=== PATIENT | female | born 1955 | race Caucasian/White ===

== ENCOUNTER 2019-08-13 11:31 | Outpatient (CLI) | payer MEDICARE, SELFPAY ==
--- NOTE | 2019-08-13 | XR_ITS ---
WS: [id number] RIGHT HAND: 3 VIEW(S) TECHNIQUE: PA, oblique and lateral. HISTORY: CONTUSION COMPARISON: None available. Nondisplaced transverse fracture proximal fifth metacarpal. No additional fractures are identified. Mild interphalangeal joint space narrowing throughout the hand. Mild degenerative changes at the firs t carpometacarpal joint. Soft tissue edema over the medial hand. XR/XR hand RT min 3V* [id number] IMPRESSION: Nondisplaced transverse fracture proximal fifth metacarpal.
== END 2019-08-13 11:32 | disposition home or self-care (01) ==
PROVIDERS: Family Provider Family Medicine; PCP Family Medicine; Visit Provider Nurse Practitioner Family
DX: S60.221A Contusion of right hand, initial encounter (principal); S62.306A Unspecified fracture of fifth metacarpal bone, right hand, initial encounter for closed fracture; X58.XXXA Exposure to other specified factors, initial encounter
CPT/HCPCS: 73130

== ENCOUNTER 2019-08-30 09:15 | Outpatient (CLI) | payer MEDICARE, SELFPAY ==
--- NOTE | 2019-08-30 09:22 | MM_ITS ---
WS: [id number] Bilateral diagnostic digital mammogram, 08/30/2019 Clinical Data: HX OF BREAST CANCER RT. Comparison: 06/10/2011, 04/28/2007, 04/11/2006, 02/19/2005. Findings: The breasts show heterogeneous density. No spiculated masses or clustered calcifications are seen. Th ere are no secondary signs of carcinoma. MM/[place] [id number] Impression: 1. Negative bilateral mammograms unchanged. 2. Recommend yearly mammograms. BIRADS: 1-Negative FOLLOW UP: 1 Year Follow-up The CAD motor checker was used.
== END 2019-08-30 09:16 | disposition home or self-care (01) ==
LOC: RADSHAW 09:18
PROVIDERS: PCP Family Medicine; Visit Provider Family Medicine
DX: Z85.3 Personal history of malignant neoplasm of breast (principal)
CPT/HCPCS: 77066

== ENCOUNTER → 2019-09-10 15:53 | Outpatient (BNVA) | payer MEDICARE, SELFPAY | PROVIDERS: PCP Family Medicine; Visit Provider Orthopaedic Surgery | DX: S62.306A Unspecified fracture of fifth metacarpal bone, right hand, initial encounter for closed fracture (principal); X58.XXXA Exposure to other specified factors, initial encounter | CPT/HCPCS: 73130 ==

== ENCOUNTER 2020-06-20 14:10 | Outpatient (CLI) | payer MEDICARE, SELFPAY ==
--- NOTE | 2020-06-20 14:19 | MM_ITS ---
WS: [id number] DIAGNOSTIC RIGHT DIGITAL MAMMOGRAM WITH CAD RIGHT breast ultrasound, limited HISTORY: RIGHT BREAST PAIN COMPARISON: 08/30/2019, 06/09/2020 Technique: CC, MLO and ML views. Spot compression RIGHT CC. Breast composition: The breasts are heterogeneously dense, which may obscure small masses. Triangula r marker is placed over the anterior breast in the area of her previously described palpable abnormal ity. Palpable abnormality has resolved since initially identified. There is no underlying soft tissue mass or nipple retraction. RIGHT breast ultrasound, limited. Ultrasound is directed to the area of the palpable abnormality. There are a few small dilated ducts. No soft tissue mass. No mass within the duct. MM/[place] [id number] IMPRESSION: BI-RADS: 2-Benign FOLLOW UP: 1 Year Follow-up Diagnostic bilateral mammogram to be scheduled in August 2020. By mammography and ultrasound no abnormality is noted in the RIGHT breast. By h istory this palpable area has since resolved. If the palpable mass returns reev aluation can be attempted.
== END 2020-06-20 14:11 | disposition home or self-care (01) ==
LOC: RADSHAW 14:17
PROVIDERS: PCP Family Medicine; Visit Provider Family Medicine
DX: N64.4 Mastodynia (principal)
CPT/HCPCS: 76642; 77065

== ENCOUNTER 2020-12-05 14:26 | Outpatient (CLI) | payer MEDICARE, SELFPAY ==
--- NOTE | 2020-12-05 14:30 | XR_ITS ---
WS: [id number] Bone mineral density performed on a [employer], 12/05/2020 Clinical data: HYPERLIPEDEMIA, ANNUAL EXAM Findings: The first 4 lumbar vertebral bodies demonstrated the bone mineral density of 1.159 g/cm2 for a young adult T score of -0.2. Measurement of the left hip reveals a bone mineral density of 1.049 g/cm2 with a young adult T score of 0.3. Measurement of the right hip reveals the bone mineral density of 1.016 g/cm2 for young adult T score of 0.1. XR/XR DEXA axial skeleton* [id number] Impression: Normal bone mineral density of the lumbar spine and both hips.
== END 2020-12-05 14:27 | disposition home or self-care (01) ==
PROVIDERS: PCP Family Medicine; Visit Provider Family Medicine
DX: Z00.00 Encounter for general adult medical examination without abnormal findings (principal); E78.5 Hyperlipidemia, unspecified
CPT/HCPCS: 77080

== ENCOUNTER 2021-07-20 13:35 | Outpatient (CLI) | payer MEDICARE, SELFPAY ==
--- NOTE | 2021-07-20 13:41 | MM_ITS ---
WS: [id number] BILATERAL 3D TOMOSYNTHESIS DIGITAL DIAGNOSTIC MAMMOGRAPHY WITH CAD CLINICAL INFORMATION: HX OF BREAST CA COMPARISON: August 30, 2019 TECHNIQUE: Bilateral CC, MLO, and ML views. FINDINGS: Scattered fibroglandular densities bilaterally. Punctate calcifications LEFT breast. No suspicious focal mass, asymmetry, calcifications, or architectural distortion. No evidence of pratima gnancy. MM/[place] [id number] IMPRESSION: BI-RADS: 2-Benign FOLLOW UP: 1 Year Follow-up Recommend return to annual diagnostic mammography.
== END 2021-07-20 13:36 | disposition home or self-care (01) ==
LOC: RAD 13:39
PROVIDERS: PCP Family Medicine; Visit Provider Family Medicine
DX: Z85.3 Personal history of malignant neoplasm of breast (principal)
CPT/HCPCS: 77062

== ENCOUNTER 2022-12-27 14:15 | Outpatient (CLI) | payer MEDICARE, SELFPAY ==
--- NOTE | 2022-12-27 14:20 | MM_ITS ---
WS: [id number] BILATERAL 3D TOMOSYNTHESIS DIGITAL DIAGNOSTIC MAMMOGRAPHY WITH CAD CLINICAL INFORMATION: ANNUAL - HX BR CA HISTORY: History of breast cancer COMPARISON: 2021 TECHNIQUE: Bilateral CC, MLO, and ML views. FINDINGS: Scattered fibroglandular densities bilaterally. Incidental punctate calcifications. No suspicious focal mass, asymmetry, calcifications, or architectural distortion. No evidence of pratima gnancy. IMPRESSION: MM/[place] [id number] BI-RADS: 2-Benign FOLLOW UP: 1 Year Follow-up Recommend return to annual diagnostic mammography.
== END 2022-12-27 14:16 | disposition home or self-care (01) ==
LOC: RAD 14:15
PROVIDERS: PCP Family Medicine; Visit Provider Family Medicine
DX: Z85.3 Personal history of malignant neoplasm of breast (principal)
CPT/HCPCS: 77062; G0279

== ENCOUNTER → 2023-01-14 09:17 | Outpatient (BNVA) | payer MEDICARE, SELFPAY | PROVIDERS: PCP Family Medicine; Visit Provider Family Medicine | DX: Z00.00 Encounter for general adult medical examination without abnormal findings (principal); Z13.220 Encounter for screening for lipoid disorders; E78.3 Hyperchylomicronemia | CPT/HCPCS: 80053; 80061; 85025 ==

== ENCOUNTER → 2024-01-10 07:10 | Outpatient (BNVA) | payer MEDICARE, SELFPAY | PROVIDERS: PCP Family Medicine; Visit Provider Family Medicine | DX: E78.5 Hyperlipidemia, unspecified (principal) | CPT/HCPCS: 80053; 80061; 85025 ==

== ENCOUNTER 2024-01-19 09:55 | Outpatient (CLI) | payer MEDICARE, SELFPAY ==
--- NOTE | 2024-01-19 10:00 | MM_ITS ---
WS: [id number] BILATERAL 3D TOMOSYNTHESIS DIGITAL DIAGNOSTIC MAMMOGRAPHY WITH CAD CLINICAL INFORMATION: Breast lump HISTORY: RIGHT breast lump. Prior RIGHT lumpectomy. COMPARISON: 2022 TECHNIQUE: Bilateral CC, MLO, and ML views. FINDINGS: The breasts are composed of heterogeneous fibroglandular density, which can limit the detection of sm all underlying mass lesions. Incidental punctate calcifications bilaterally. Lumpectomy changes upper RIGHT breast with parenchymal scarring. Palpable marker area of concern. No definite mammographic abnormalities in this area. Ultrasound is p ending. ULTRASOUND BREAST RIGHT TECHNIQUE: Ultrasound right breast focused area of concern. CLINICAL INFORMATION: Breast lump FINDINGS: Ultrasound RIGHT breast area of concern 10 o'clock position RIGHT breast patient directed. Few incide ntal underlying cystic lesions. Dense underlying parenchymal tissue. No suspicious lesions of target for biopsy. Recommend return to annual diagnostic mammography. MM/MM diag BI tomosynthesis [id number] IMPRESSION: DENSITY: The breasts are heterogeneously dense, which may obscure small masses. BI-RADS: 2 - Benign FOLLOW UP: 1 Year Follow-up Recommend return to annual diagnostic mammography.
--- NOTE | 2024-01-19 10:38 | US_ITS ---
WS: [id number] BILATERAL 3D TOMOSYNTHESIS DIGITAL DIAGNOSTIC MAMMOGRAPHY WITH CAD CLINICAL INFORMATION: Breast lump HISTORY: RIGHT breast lump. Prior RIGHT lumpectomy. COMPARISON: 2022 TECHNIQUE: Bilateral CC, MLO, and ML views. FINDINGS: The breasts are composed of heterogeneous fibroglandular density, which can limit the detection of sm all underlying mass lesions. Incidental punctate calcifications bilaterally. Lumpectomy changes upper RIGHT breast with parenchymal scarring. Palpable marker area of concern. No definite mammographic abnormalities in this area. Ultrasound is p ending. ULTRASOUND BREAST RIGHT TECHNIQUE: Ultrasound right breast focused area of concern. CLINICAL INFORMATION: Breast lump FINDINGS: Ultrasound RIGHT breast area of concern 10 o'clock position RIGHT breast patient directed. Few incide ntal underlying cystic lesions. Dense underlying parenchymal tissue. No suspicious lesions of target for biopsy. Recommend return to annual diagnostic mammography. US/US breast RT limited* [id number] IMPRESSION: DENSITY: The breasts are heterogeneously dense, which may obscure small masses. BI-RADS: 2 - Benign FOLLOW UP: 1 Year Follow-up Recommend return to annual diagnostic mammography.
== END 2024-01-19 09:56 | disposition home or self-care (01) ==
LOC: RAD 09:55
PROVIDERS: PCP Family Medicine; Visit Provider Family Medicine
DX: N63.11 Unspecified lump in the right breast, upper outer quadrant (principal); R92.333 Mammographic heterogeneous density, bilateral breasts; R92.1 Mammographic calcification found on diagnostic imaging of breast; Z98.890 Other specified postprocedural states
CPT/HCPCS: 76642; 77062; G0279

== ENCOUNTER 2024-04-10 11:01 | Outpatient (CLI) | payer MEDICARE, SELFPAY ==
--- NOTE | 2024-04-10 11:05 | XRR_ITS ---
PROCEDURE INFORMATION: Exam: XR Chest Exam date and time: 04/10/2024 11:09 AM Age: 69 years old Clinical indication: Cough; Prior surgery; Surgery date: 6+ months; Surgery type: Lumpectomy; HX of breast cancer TECHNIQUE: Imaging protocol: Radiologic exam of the chest. Views: 2 views. COMPARISON: No relevant prior studies available. FINDINGS: Lungs: Unremarkable. No consolidation. Pleural spaces: Unremarkable. No pleural effusion. No pneumothorax. Heart/Mediastinum: Unremarkable. No cardiomegaly. Bones/joints: Mild scoliosis. Otherwise, unremarkable. XR/XR chest 2V* [id number] IMPRESSION: No acute disease.
== END 2024-04-10 11:02 | disposition home or self-care (01) ==
LOC: RAD 11:02
PROVIDERS: PCP Family Medicine; Visit Provider Family Medicine
DX: R05.9 Cough, unspecified (principal); M41.9 Scoliosis, unspecified
CPT/HCPCS: 71046